=== PATIENT | female | born 1990 | race Caucasian/White ===

== ENCOUNTER 2020-07-09 06:52 | Outpatient (NON) | payer OTHER, SELFPAY ==
[2020-07-09 19:19] LABS: SARS-CoV-2 RNA PCR Negative
== END 2020-07-09 06:53 ==
PROVIDERS: PCP Internal Medicine; Visit Provider Clinical Nurse Specialist
DX: Z20.828 Contact with and (suspected) exposure to other viral communicable diseases (principal); R05 Cough
CPT/HCPCS: 87635; C9803; U0003

== ENCOUNTER 2021-02-03 11:07 | Outpatient (CLI) | payer OTHER, SELFPAY ==
--- NOTE | ~2021-02-03 | XR_ITS ---
EXAMINATION: XR thoracic spine 3V EXAM DATE: 02/03/2021 11:45 INDICATION: Mid back pain. Mid Center T Spine Pain, Radiating To Lower Back And Around Ribs X 1 Week. Shooting Pain. TECHNIQUE: Frontal and lateral projections of the thoracic spine as well as lateral swimmers projecti on of the upper thoracic spine for interpretation. There is no prior study for comparison. FINDINGS: The vertebral bodies are aligned in the AP dimension. Vertebral body and disc heights are well-maintained. There are no bony erosions identified. Paraspinal soft tissue is unremarkable. IMPRESSION: Unremarkable thoracic spine x-ray. Reviewed, dictated and finalized at location B.
--- NOTE | ~2021-02-03 | XR_ITS ---
EXAMINATION: XR lumbar spine 2-3V EXAM DATE: 02/03/2021 11:45 INDICATION: M54.9 - Dorsalgia, unspecified. TECHNIQUE: Lumber spine frontal, lateral, lateral L5-S1 projections for interpretation. There is no prior study for comparison. FINDINGS: Minimal lower lumbar facet arthropathy. The vertebral bodies are aligned in the AP dimensio n. Vertebral body and disc heights are well-maintained. There are no bony erosions identified. There are no acute fractures identified. Paraspinal soft tissue is unremarkable. Sacrum, sacroiliac joints, sacral arcuate lines are intact. IMPRESSION: Minimal facet arthropathy. Reviewed, dictated and finalized at location B. IMPRESSION: Minimal facet arthropathy.
== END 2021-02-03 11:08 ==
PROVIDERS: PCP Internal Medicine; Visit Provider Nurse Practitioner
DX: M54.9 Dorsalgia, unspecified (principal)
CPT/HCPCS: 72072; 72100

== ENCOUNTER → 2021-10-22 16:00 | Outpatient (CLI) | payer OTHER, SELFPAY ==
--- NOTE | ~2021-10-22 | XR_ITS ---
EXAMINATION: XR knee LT min 4V DATE: 10/22/2021 16:26 INDICATION: Left knee pain TECHNIQUE: Four views of the left knee were obtained. COMPARISON: 05/21/2013 FINDINGS: Alignment is normal. No fracture or osteochondral lesion. Joint spaces are normal with no e rosions. No joint effusion/synovitis. There is subtle medial soft tissue swelling of the knee. IMPRESSION: 1. Mild medial soft tissue swelling without acute osseous abnormality. Reviewed, dictated and finalized at location F. S MANAGER
== END ==
PROVIDERS: PCP Internal Medicine; Visit Provider Family Medicine
DX: M25.562 Pain in left knee (principal); M79.89 Other specified soft tissue disorders
CPT/HCPCS: 73564

== ENCOUNTER → 2022-06-23 10:46 | Outpatient (CLI) | payer OTHER, SELFPAY ==
--- NOTE | ~2022-06-23 | US_ITS ---
EXAMINATION: US pelvic complete DATE: 06/23/2022 11:01 INDICATION: Pelvic pain. Comparison:03/15/2014 TECHNIQUE: Multiple transabdominal sonographic images of the pelvis performed. FINDINGS: The uterus measures 8 x 3.9 x 4.1 cm. The endometrial complex measures 7 mm. The right ovary measures 3 x 1.8 x 2.6 cm and the left ovary measures 3.9 x 2.2 x 2.8 cm. There are small follicles in each ovary. Normal doppler signal in both ovaries. There is no free fluid in the pelvis. There are no abnormal masses seen on either side. IMPRESSION: 1. Unremarkable pelvic ultrasound. Reviewed, dictated and finalized at location A.
== END ==
PROVIDERS: PCP Internal Medicine; Visit Provider Nurse Practitioner
DX: R10.2 Pelvic and perineal pain (principal)
CPT/HCPCS: 76856

== ENCOUNTER 2024-08-22 11:13 | Outpatient (CLI) | payer OTHER, SELFPAY ==
--- NOTE | ~2024-08-22 | US_ITS ---
RIGHT UPPER QUADRANT ABDOMINAL ULTRASOUND (Doppler ultrasound interrogation techniques used as needed for this exam.) Ordering provider: FLOR Caelro-Flores History: . R10.11 - Right upper quadrant pain . Comparison: None. FINDINGS: PANCREAS: Normal echotexture and size. PORTAL VEIN: Hepatopedal flow demonstrated. LIVER: Normal size and echotexture. No focal hepatic lesions or perihepatic fluid collections are sonia ntified. BILIARY DUCTS: No intra or extrahepatic biliary dilation. Common bile duct measures 1 mm in diameter which is normal for patient's age. GALLBLADDER: Normal. No stones, sludge, gallbladder wall thickening or pericholecystic fluid. Negati ve sonographic Porter's sign. Wall thickness is 0.2 cm. The aorta: Normal. IVC: Normal. FREE FLUID: None visualized within the upper abdomen. IMPRESSION: normal right upper quadrant ultrasound. Reviewed, dictated and finalized at location A. ATIONS SUPPORT SPECIALIST
== END 2024-08-22 11:14 | disposition home or self-care (01) ==
LOC: ANHIMG 11:14
PROVIDERS: PCP Internal Medicine; Visit Provider Clinical Nurse Specialist
DX: R10.11 Right upper quadrant pain (principal)
CPT/HCPCS: 76705

== ENCOUNTER 2024-09-05 09:59 | Outpatient (CLI) | payer OTHER, SELFPAY ==
--- NOTE | ~2024-09-05 | NM_ITS ---
EXAMINATION: NM hepatobiliary wo pharm DATE: 09/05/2024 12:49 INDICATION: Right upper quadrant abdominal pain. COMPARISON: Ultrasound 08/22/2024 TECHNIQUE: 4.9 mCi Tc-99m mebrofenin (Choletec) was administered intravenously. Scintigraphic images of the abdomen were obtained for one hour. Then, the patient drank 8 oz Ensure, and imaging was cont inued for 60 minutes. FINDINGS: There is normal clearance of radiotracer from the blood pool. There is homogeneous tracer u ptake by the liver. Activity progresses to the bowel and gallbladder. Gallbladder ejection fraction (GBEF) was 44%. Note that with this technique, normal GBEF >= 33%. IMPRESSION: 1. Normal hepatobiliary scintigraphy. Reviewed, dictated and finalized at location A. MAKING REHABILITATION CONSULTANT
== END 2024-09-05 10:00 | disposition home or self-care (01) ==
PROVIDERS: PCP Internal Medicine; Visit Provider Clinical Nurse Specialist
DX: R10.11 Right upper quadrant pain (principal)
CPT/HCPCS: 78226; A9537